=== PATIENT | female | born 1950 | race Caucasian/White ===

== ENCOUNTER 2017-02-10 12:55 | Inpatient (IN) | payer BC ==
[~2017-02-10] VITALS: Ht 162.6 cm; Wt 77.1 kg
[~2017-02-10 12:55] MED LIST: AMB5 PO; APAP/HYDROCODON1 T13 PO; BG MC; CIPRO250 MG PO; CLINDAMYCIN300 M1 PO; COL100 PO; FER300 PO; GABAPENTIN100 M2 PO; HEP5I SC; IPRATROPIUM BROM3 M2 HHN; LAC PO; LEVEMIR100 U/M1 SC; LEVEMIR100 U/M1 SQ; LIPI10 PO; LORAZEPAM0.5 MG PO; NEP PO; NIFEDIPINE ER30 M1 PO; NOVOLIN R100 U/ML SQ; PHOS PO; PULMICORT0.25 MG/2 IH; VITC PO
[2017-02-10 13:32] LABS: PLATELET COUNT 336 x10^3mcL (130-400)
[2017-02-10 13:37] LABS: RED CELL DISTRIBUTION WIDTH 15.9 % (11.5-14.5)
[2017-02-10 13:50] LABS: BILIRUBIN TOTAL 0.4 mg/dL (0.20-1.00); CALCIUM 8.6 mg/dL (8.5-10.1); CARBON DIOXIDE 20.7 mmol/L (21-32); POTASSIUM SERUM 4.3 mmol/L (3.5-5.1); TOTAL PROTEIN, SERUM 7.2 g/dL (6.4-8.2)
[2017-02-10 13:51] LABS: ALBUMIN 2.5 g/dL (3.4-5.0)
[2017-02-10 13:54] LABS: CREATININE SERUM 5.1 mg/dL (0.6-1.0)
[2017-02-10 15:25] VITALS: BP 143/69
[2017-02-10] MEDS ORDERED: PRAVASTATIN SOD40 M1 PO (15:54)
[2017-02-10] MEDS ORDERED: NIFEDIPINE30 MG PO (15:54)
[2017-02-10 16:12] LABS: CHOLESTEROL/HDL RATIO 3.5
[2017-02-10 16:20] LABS: T3 TOTAL 0.91 ng/mL
[2017-02-10 16:35] LABS: UA SPECIFIC GRAVITY 1.025 (1.005-1.035); microscopic required? YES; urine erythrocyte 1+ (NEGATIVE)
[2017-02-10 16:38] LABS: FREE T4 0.84 ng/dL (0.76-1.46); FREE THYROXINE INDEX 2.8 ug/dL (1.4-4.5); T4(THYROXINE) 7.5 ug/dL (4.7-13.3)
[2017-02-10 16:47] LABS: AMPHETAMINE QUAL UR NONE DETECTED (NEG <=1000)
[2017-02-10 19:50] VITALS: BP 170/90
[2017-02-11 06:19] LABS: CALCIUM 8.6 mg/dL (8.5-10.1); CARBON DIOXIDE 21.2 mmol/L (21-32); MAGNESIUM 2.1 mg/dL (1.8-2.4); PHOSPHOROUS 5.8 mg/dL (2.5-4.9); POTASSIUM SERUM 4.8 mmol/L (3.5-5.1)
[2017-02-11 06:30] VITALS: BP 187/89
[2017-02-11 06:32] LABS: CREATININE SERUM 5.2 mg/dL (0.6-1.0)
[2017-02-11 08:23] LABS: BASOPHIL % 0.9 % (0-2); PLATELET COUNT 299 x10^3mcL (130-400)
[2017-02-11 08:29] LABS: RED CELL DISTRIBUTION WIDTH 16.4 % (11.5-14.5)
[2017-02-11 09:30] VITALS: BP 183/85
[2017-02-11 13:21] VITALS: BP 164/83
[2017-02-11] MEDS ORDERED: ROC1I IM (16:46)
[2017-02-11] MEDS ORDERED: CLINDAMYCI600 MG/4 M IV (16:47)
[2017-02-11] MEDS ORDERED: THERA TABS1 TAB PO (16:48)
[2017-02-11] MEDS ORDERED: LAC PO ×2 (16:49→17:33)
[2017-02-11] MEDS ORDERED: ECO81 PO (16:57)
[2017-02-11 17:06] VITALS: BP 164/83
[2017-02-11 17:14] VITALS: BP 179/87
[2017-02-11] MEDS ORDERED: LEVAQUIN250 M1 PO (17:33)
[2017-02-11] MEDS ORDERED: NIFEDIPINE60 MG PO (17:33)
[2017-02-11] MEDS ORDERED: CLINDAMYCIN HC300 MG PO (17:33)
[2017-02-11 18:13] VITALS: BP 179/87
== END 2017-02-11 19:35 | disposition left against medical advice (07) | DRG 602 ==
LOC: ED 12:55 → DU 14:37
PROVIDERS: Emergency Medicine; ADMIT Family Medicine
DX: L03.116 Cellulitis of left lower limb (principal); N17.0 Acute kidney failure with tubular necrosis; N18.6 End stage renal disease; E46 Unspecified protein-calorie malnutrition; I12.0 Hypertensive chronic kidney disease with stage 5 chronic kidney disease or end stage renal disease; L03.115 Cellulitis of right lower limb; I87.8 Other specified disorders of veins; E83.39 Other disorders of phosphorus metabolism; G62.9 Polyneuropathy, unspecified; D64.9 Anemia, unspecified; I87.2 Venous insufficiency (chronic) (peripheral); E11.22 Type 2 diabetes mellitus with diabetic chronic kidney disease; E11.42 Type 2 diabetes mellitus with diabetic polyneuropathy; E78.5 Hyperlipidemia, unspecified; Z68.29 Body mass index [BMI] 29.0-29.9, adult
CPT/HCPCS: 80307; 82962; 83880; 84439; 97110-GP; 97116-GP; 97530-GP; J0295; J0360; J0696; J1815; J2405; J3490; J7030; Q0092

== ENCOUNTER 2018-10-12 11:34 | Emergency (ER) | payer BC ==
[~2018-10-12 11:34] MED LIST changes: +CLINDAMYCI600 MG/4 M IV; +CLINDAMYCIN HC300 MG PO; +ECO81 PO; +LEVAQUIN250 M1 PO; +NIFEDIPINE30 MG PO; +NIFEDIPINE60 MG PO; +PRAVASTATIN SOD40 M1 PO; +ROC1I IM; +THERA TABS1 TAB PO
[2018-10-12 11:42] VITALS: Ht 157.5 cm
[2018-10-12 13:00] VITALS: BP 148/76
== END 2018-10-12 13:00 | disposition home or self-care (01) ==
LOC: ED 11:34
DX: I87.8 Other specified disorders of veins (principal); N76.0 Acute vaginitis; I10 Essential (primary) hypertension; E11.9 Type 2 diabetes mellitus without complications; E78.00 Pure hypercholesterolemia, unspecified

== ENCOUNTER 2018-11-30 09:23 | Emergency (ER) | payer BC ==
[~2018-11-30] VITALS: Ht 162.6 cm; Wt 101.6 kg
[2018-11-30 09:26] VITALS: Ht 162.6 cm; Wt 101.6 kg
[2018-11-30 10:57] LABS: BASOPHIL % 0.4 % (0-2); PLATELET COUNT 167 x10^3mcL (130-400); RED CELL DISTRIBUTION WIDTH 14.3 % (11.5-14.5)
[2018-11-30 11:20] LABS: BILIRUBIN TOTAL 0.47 mg/dL (0.20-1.00); CALCIUM 9.3 mg/dL (8.5-10.1); CARBON DIOXIDE 31.1 mmol/L (21-32); POTASSIUM SERUM 3.8 mmol/L (3.5-5.1)
[2018-11-30 11:21] LABS: ALBUMIN 3.3 g/dL (3.4-5.0); CREATININE SERUM 5.6 mg/dL (0.6-1.0); TOTAL PROTEIN, SERUM 8.6 g/dL (6.4-8.2)
[2018-11-30 12:26] VITALS: BP 171/104
== END 2018-11-30 12:19 | disposition home or self-care (01) ==
LOC: ED 09:23
PROVIDERS: Emergency Medicine
DX: J20.9 Acute bronchitis, unspecified (principal); E11.22 Type 2 diabetes mellitus with diabetic chronic kidney disease; I12.0 Hypertensive chronic kidney disease with stage 5 chronic kidney disease or end stage renal disease; N18.6 End stage renal disease; E78.00 Pure hypercholesterolemia, unspecified; Z99.2 Dependence on renal dialysis; Z98.890 Other specified postprocedural states
CPT/HCPCS: 36415; Q0092

== ENCOUNTER 2019-02-09 13:44 | Emergency (ER) | payer BC ==
[2019-02-09 15:34] VITALS: BP 152/84
== END 2019-02-09 15:34 | disposition home or self-care (01) ==
LOC: ED 13:44
DX: I87.2 Venous insufficiency (chronic) (peripheral) (principal); E11.22 Type 2 diabetes mellitus with diabetic chronic kidney disease; I12.0 Hypertensive chronic kidney disease with stage 5 chronic kidney disease or end stage renal disease; N18.6 End stage renal disease; E78.00 Pure hypercholesterolemia, unspecified; Z98.890 Other specified postprocedural states